=== PATIENT | female | born 1990 | race Caucasian/White ===

== ENCOUNTER 2022-05-10 14:24 | Outpatient (CLI) | payer BC, SELFPAY ==
[2022-05-10 14:46] LABS: Clue Cells No Clue Cells Seen (None Seen); Trichomonas No Trichomonas Seen (None Seen); Yeast No Yeast Seen (None Seen)
== END 2022-05-10 14:25 | disposition home or self-care (01) ==
LOC: LAB 14:25
PROVIDERS: Visit Provider Obstetrics & Gynecology
DX: Z34.01 Encounter for supervision of normal first pregnancy, first trimester (principal); Z3A.12 12 weeks gestation of pregnancy
CPT/HCPCS: 87210

== ENCOUNTER 2022-05-23 14:54 | Outpatient (CLI) | payer BC, SELFPAY ==
--- NOTE | 2022-05-23 15:00 | CRLHL7_ITS ---
For Patients: As a result of the Cures Act, medical imaging exams and procedure reports are released immediately into your electronic medical record. You may view this report before your referring provider. If you have questions, please contact your health care provider. Indication: Palpable abnormalities left inguinal region Technique: Ultrasound extremity left Comparison: None Findings: Multiple left inguinal lymph nodes measuring up to 1.9 centimeters. 5 millimeters cystic area in the left inguinal region. No other abnormalities. Impression: Multiple left inguinal lymph nodes measuring up to 1.9 centimeters. 5 millimeter cystic area in the left inguinal region of unknown clinical significance. Dictated by Rom Macias MD @ 05/23/2022 4:45:00 PM (Electronically Signed)
== END 2022-05-23 14:55 | disposition home or self-care (01) ==
LOC: US 14:55
PROVIDERS: Visit Provider Advanced Practice Midwife
DX: R59.9 Enlarged lymph nodes, unspecified (principal)
CPT/HCPCS: 76882

== ENCOUNTER 2022-07-05 12:46 | Outpatient (CLI) | payer BC, SELFPAY ==
--- NOTE | 2022-07-05 13:00 | CRLHL7_ITS ---
For Patients: As a result of the Century Cures Act, medical imaging exams and procedure reports are released immediately into your electronic medical record. You may view this report before your referring provider. If you have questions, please contact your health care provider. INDICATION: anatomy survey. TECHNIQUE: Obstetrical ultrasound. FINDINGS: position: Multiple positions. Cervix: Visualized. Technique: Transabdominal. Length of closed cervix: 4.3 cm. Placenta/cord: Anterior. Technique: Transabdominal. Placenta tip to internal OS: 2.8 cm. Umbilical Cord: 3-vessel cord. Placenta insertion: Central. Amniotic Fluid: 4.9 cm SDP (greater than/equal to: 2- less than 8 cm). SURVEY: Observed Structures Cerebellum: 2.1 cm, 21 w 2 d. Cisterna Magna: 4.8 mm. Nuchal Fold: 5.0 mm. Lateral Ventricle: 6.2 mm. CSP: Yes. Midline Falx: Yes. Choroid Plexus: Yes. Spine: Yes. Abdomen: Stomach: Yes. Abd Cord Insertion: Yes. Urinary Bladder: Yes. Kidneys: Yes. Diaphragm: Yes. Face: Nose/lips: Yes. Orbital view: Yes. Profile: Yes. Limbs: Upper Extremities: Yes. Lower Extremities: Yes. Hands: Yes. Feet: Yes. Vascular: Four-Chamber Heart: Yes. LVOT: Yes. RVOT: Yes. 3VV: Yes. 3VTV: Yes. BPD: 4.8 cm. 20 w 3 d, 36 percent. HC: 18.6 cm. 20 w 6 d, 50 percent. AC: 17.3 cm. 22 w 2 d, 88 percent. FL: 3.6 cm. 21 w 3 d, 66 percent. FL/AC: 20.8 percent. HC/AC Ratio: 1.07. Heart rate: 141 beats per minute. age by this US: 21, w 2 d. DEB by this US: 11/13/2022. EFW: 446 g. Weight: 1 lb, 0 oz. Percentile by DEB: 92 percent. COMMENTS: The placenta is anterior. The inferior edge of the placenta is 2.8 cm from the internal cervical os. No anatomic abnormalities are identified. Dictated by Solomon Kuhn MD @ 07/05/2022 10:19:07 PM (Electronically Signed)
== END 2022-07-05 12:47 | disposition home or self-care (01) ==
LOC: US 12:47
PROVIDERS: Visit Provider Advanced Practice Midwife
DX: Z34.92 Encounter for supervision of normal pregnancy, unspecified, second trimester (principal); Z3A.21 21 weeks gestation of pregnancy
CPT/HCPCS: 76805

== ENCOUNTER 2022-08-29 13:16 | Outpatient (CLI) | payer BC, SELFPAY ==
[2022-08-31 00:52] LABS: Rapid Plasma Reagin (RPR) Non Reactive (Non Reactive)
== END 2022-08-29 13:17 | disposition home or self-care (01) ==
PROVIDERS: Visit Provider Advanced Practice Midwife
DX: Z34.93 Encounter for supervision of normal pregnancy, unspecified, third trimester (principal)
CPT/HCPCS: 86592; 86850

== ENCOUNTER 2022-10-14 21:07 | Outpatient (CLI) | payer BC, SELFPAY ==
[2022-10-14 21:25] VITALS: BP 146/86; PULSE 75; PULSE 89; O2SAT 99
[2022-10-14 21:31] LABS: Hematocrit 33.3 % (33.0-51.0); Hemoglobin* 11.2 gm/dL (12.0-16.0); Mean Corpuscular HGB Conc 34 gm/dL (32-36); Mean Corpuscular Hemoglobin 33 pg (26-34); Mean Corpuscular Volume 97 fL (80-100); Platelet Count* 270 K/uL (140-440); Red Blood Count 3.43 m/uL (4.00-5.20); White Blood Count* 10.59 K/uL (4.50-11.00)
[2022-10-14 21:33] LABS: Slide Review Reflex No
[2022-10-14 21:37] VITALS: BP 135/70; PULSE 82; TEMP 36.8
[2022-10-14 21:52] VITALS: BP 122/75; PULSE 79
[2022-10-14 21:53] LABS: Alanine Aminotransferase* 16 U/L (4-35); Aspartate Amino Transferase* 21 U/L (12-35); Blood Urea Nitrogen* 4 mg/dL (5-24); Creatinine* 0.5 mg/dL (0.5-1.5); Estimated Glomerular Filt Rate 126 ml/min
[2022-10-14 21:53] LABS: Total Protein Urine 21 mg/dL
[2022-10-14 21:54] LABS: Creatinine Urine 48.5 mg/dL
[2022-10-14 22:07] VITALS: BP 122/72; PULSE 77
[2022-10-14 22:22] VITALS: BP 125/77; PULSE 75
[2022-10-14 22:37] VITALS: BP 119/73; PULSE 80
--- NOTE | 2022-10-14 23:28 | PC.OBNST ---
NST Note NST Note Start: 10/14/22 21:13 Freq: ONCE Status: Discharge Protocol: Document 10/14/22 23:26 JASMorgan (Rec: 10/14/22 23:28 ANG [id number]) NST Note 1 Para (# of births) 0 EDC 11/17/22 Gestational Age In Weeks & Days 35 Weeks & 1 Days Patient Presented with Complaint(s) of Other Other Complaints Pt called triage line for increased swelling and was sent to center for pre-e rule out. Reactive Yes Appropriate for Gestational Age Yes RN Mikal Gonzalez RN Date 10/14/22 Reactive Yes Appropriate for Gestational Age Yes RN Kiera Natarajan RN Date 10/14/22 OB NST charge Yes Complete NST Note via Write Note Yes The provider's electronic signature indicates the NST is reactive/appropriate for gestational age. *Note to provider: If an addendum is required, open the patient's chart and click on the note under the Nurse/Allied Health tab.
== END 2022-10-14 23:02 | disposition home or self-care (01) ==
LOC: OB OUT 21:08 → OB 21:10
PROVIDERS: Visit Provider Advanced Practice Midwife
DX: O47.03 False labor before 37 completed weeks of gestation, third trimester (principal); Z3A.35 35 weeks gestation of pregnancy
CPT/HCPCS: 36415; 59025; 82565; 82570; 84156; 84450; 84460; 84520; 85027; 99213

== ENCOUNTER 2022-10-15 15:56 | Outpatient (CLI) | payer BC, SELFPAY ==
[2022-10-16 14:38] LABS: Strep B DNA Probe NEGATIVE (Negative)
[2022-10-16 14:44] LABS: Strep B Pen/Amox Allergy No
== END 2022-10-15 15:57 | disposition home or self-care (01) ==
LOC: NFLDREF 15:56
PROVIDERS: Visit Provider Advanced Practice Midwife
DX: Z34.03 Encounter for supervision of normal first pregnancy, third trimester (principal); Z3A.35 35 weeks gestation of pregnancy
CPT/HCPCS: 87081; 87653

== ENCOUNTER 2022-10-16 16:14 | Outpatient (CLI) | payer BC, SELFPAY ==
[2022-10-16 18:19] LABS: Total Protein Urine 13 mg/dL
[2022-10-16 18:20] LABS: Creatinine Urine 61.4 mg/dL
[2022-10-16 18:58] LABS: Collection Time Urine 24 Hours
[2022-10-16 19:04] LABS: Total Protein 24 Hour Urine 325 mg/dL; Total Volume 24 Hour Urine 2500 ml; Urine Creatinine mg/24 Hour 0 mg/Day
== END 2022-10-16 16:15 | disposition home or self-care (01) ==
PROVIDERS: Visit Provider Advanced Practice Midwife
DX: O12.00 Gestational edema, unspecified trimester (principal); Z3A.35 35 weeks gestation of pregnancy
CPT/HCPCS: 82570; 84156

== ENCOUNTER 2022-10-24 09:11 | Outpatient (CLI) | payer BC, SELFPAY ==
--- NOTE | 2022-10-24 09:15 | CRLHL7_ITS ---
For Patients: As a result of the Century Cures Act, medical imaging exams and procedure reports are released immediately into your electronic medical record. You may view this report before your referring provider. If you have questions, please contact your health care provider. INDICATION: Third trimester scan, evaluate growth. SIZE LARGER THAN DATES COMPARISON: 07/05/2022 TECHNIQUE: Real time maher scale imaging of the fetus was performed. FINDINGS: Sonographic imaging demonstrates a single living intrauterine gestation. Fetus demonstrates a regular cardiac rate of 131 beats per minute. Fetus has a tamica breech position. The placenta lies without evidence of placenta previa. Amniotic fluid volume appears increased and there is a single deepest vertical pocket: 11.1 cm. CARL of 33.4 cm. The estimated weight is 4164gm which lies at the greater than 97th %. On the prior OB ultrasound exam dated 07/05/2022 the estimated weight was at the 92nd%. BPD, HC, AC greater than 97th percentile. FL 87th percentile. The HC/AC ratio measures 0.96 range (0.90-1.03). Normal gross body movements, tone and respiratory activity. IMPRESSION: Normal biophysical profile 06/18. Sonographic gestational age 40 weeks 0 days. Sonographic age is 24 days ahead of the clinical age. Estimated weight greater than 97th percentile. BPD, HC, AC greater than 97th percentile. Polyhydramnios. Four-quadrant CARL of 33.4 cm. Dictated by Rom Roca MD @ 10/24/2022 11:48:42 AM (Electronically Signed)
== END 2022-10-24 09:12 | disposition home or self-care (01) ==
LOC: US 09:12
PROVIDERS: Visit Provider Advanced Practice Midwife
DX: Z34.93 Encounter for supervision of normal pregnancy, unspecified, third trimester (principal); O40.3XX0 Polyhydramnios, third trimester, not applicable or unspecified; Z3A.36 36 weeks gestation of pregnancy
CPT/HCPCS: 76816; 76819

== ENCOUNTER 2022-11-01 11:58 | Inpatient (IN) | payer BC, SELFPAY ==
[2022-11-01] VITALS (23 sets, daily range): BP systolic 107–145; BP diastolic 50–110; PULSE 65–90; RESP 16–18; TEMP 37–37.4; O2SAT 96–100; BMI 32.4
[2022-11-01 12:14] LABS: Hemoglobin* 13.2 gm/dL (12.0-16.0)
[2022-11-01] MEDS: LACTATED RINGERS 1000 ML 1,000 ML 125 ML IV ×2 (12:15→13:30)
--- NOTE | 2022-11-01 13:37 | W.PM.LDBA ---
Subjective History of Present Illness Date Seen: 11/01/22 Narrative: Patient is being admitted to Labor and Delivery for delivery. She is a 32 year old at weeks gestation. Her full history and physical was dictated by Dr. Rosa on 10/30/22. Please see this for details. Patient was seen today in clinic for routine evaluation in the setting of polyhydramnios. Patient had one elevated blood pressure in clinic a couple of weeks ago and we had asked her to monitor her blood pressures at home. Patient states that last night she had readings as high as 150 systolic and she had also developed a headache. Due to elevated blood pressures more than 4 hours apart, diagnosis of gestational hypertension is met, she also had proteinuria since the beginning of that improved and today is again found elevated at 0.3, meeting criteria for preeclampsia w/o severe features. Labs repeated today and found normal w/o evidence of severe disease. Patient had been seen in clinic on 10/30/22 as a consult for delivery due to malpresentation. Recommendation was given today for delivery. OB - H&P: Exam Physical Exam: Vital signs: Pulse BP 90 121/74 11/01/22 13:27 11/01/22 13:27 Narrative: NST: 130bpm/positive accelerations/negative decelerations/ moderate variability/ irregular uterine contractions OB - Problem Based A/P Additional Plan (1) : Status: Acute Plan Will proceed with delivery today. Informed consent again reviewed with patient and . Discussed concerns for heavier bleeding in the setting of overdistended uterus and recommend dose of TXA after baby is delivered. Patient is in agreement with plan. Will continue to monitor vital signs closely after delivery, will only repeat labs if there is concerns for severe hypertension.
[2022-11-01] MEDS: CEFAZOLIN 2 GM INJ IVP (14:00)
[2022-11-01] MEDS: miSOPROStoL 800 MCG/4 TABLET PR (14:30)
[2022-11-01] MEDS: KETOROLAC 30 MG/ML inj IVP ×2 (14:30→20:45)
--- NOTE | 2022-11-01 14:41 | W.ANESCHARGE ---
Anesthesia Charges Start Date/Time Anesthesia Start Date: 11/01/22 Anesthesia Start Time: 13:50 Stop Date/Time Anesthesia Stop Date: 11/01/22 Anesthesia Stop Time: 15:06 Summary Emergency: Yes
--- NOTE | 2022-11-01 14:58 | PM.OBPRCCS ---
Procedure Pre-op/Post-op diagnoses: Pre-Op/Post-Op Diagnoses Operation Date: 11/01/22 12:50 <No data on this case meets the specified criteria> Procedure Done: Global Procedure Details: Procedures Operation Date: 11/01/22 12:50 Actual Procedure Side Surgeon p Section Not Applicable Krysten Dickerson MD Global Climate Change Researcher: Kianna De La Garza Estimated blood loss (mL): 589 Disposition: floor Anesthesia type: Spinal Complications: Uterine atony w/o hemorrhage Narrative: PREOPERATIVE DIAGNOSES: 1. Intrauterine at 37 5 /7 weeks' gestation. 2. Preeclampsia w/o severe features 3. Idiopathic polyhydramnios POSTOPERATIVE DIAGNOSES: 1. Intrauterine at 37 5/7 weeks' gestation, now delivered 2. Preeclampsia w/o severe features 3. Idiopathic polyhydramnios 4. Uterine atony w/o hemorrhage NAME OF PROCEDURE: Primary low transverse section. ANESTHESIA: Spinal. COMPLICATIONS: Uterine atony w/o hemorrhage. Quantitative BLOOD LOSS: 589 DRAINS: [place] to gravity. FINDINGS: Live-born female infant, breech presentation, Apgars 8 and 9 at 1 and 5 minutes respectively. weight 9 lb 8 oz. PROCEDURE: After obtaining informed consent, the patient was taken to the operating room where spinal anesthesia was obtained and found to be adequate. She was prepared and draped in the normal sterile fashion in the dorsal supine position with a leftward tilt. A Pfannenstiel skin incision was made with a scalpel about 2 cm above symphysis pubic bone, 8-10 cm in length. This incision was carried down to the underlying layer of fascia with the Bovie and scalpel. The fascia was incised in the midline and the incision extended laterally. The rectus muscles were then in the midline. The Romulo O retractor was then placed into the incision. The lower uterine segment was then incised in a transverse fashion with the scalpel. Upon entry into the uterus, clear amniotic fluid was noted, (about 2L of amniotic fluid). The uterine incision was extended cephalo caudally with blunt finger fractionation. sacrum/buttocks were brought to incision and with fundal pressure fetus was delivered slowly up to hips, legs were seen to be extended and a moist lap was placed in abdomen and with further fundal pressure and gentle traction baby was delivered up to scapulas, left arm eliveed spontaneously the right arm was extended and I flexed the arm to help deliver, Mauriceau maneuver was performed to complete delivery of head. The cord was doubly clamped and cut, after at least 30 seconds of delayed cord clamping and the was handed off the field to [facility] for evaluation. The placenta was delivered spontaneously with umbilical cord traction and fundal massage. This was sent to pathology. The uterus was cleared of all clots and debris. The uterine incision was reapproximated in a running locking fashion with a 0 Vicryl suture. A 2nd layer of the same suture was used to imbricate in horizontal fashion. The uterus continued to feel boggy and w/o adequate tone, I had already given 1g TXA after delivery of baby. 1 dose of Methergine (blood pressures intra op were low-normal) and 800mcg of Cytotec were placed rectally. Since there was no further bleeding identified at hysterotomy, nor vaginally proceeded with closure. The gutters were inspected and cleared of blood clot. All instruments and retractors were removed. The subfascial tissues were carefully inspected and hemostasis assured. The fascia was reapproximated in a running fashion with a looped 0 Vicryl suture. The subcutaneous tissues were inspected and hemostasis was assured. The subcutaneous fat layer was reapproximated with interrupted sutures of 3-0 Vicryl. The skin was closed in a subcuticular fashion with 4-0 Monocryl. LiquiBand and dressing were applied. The patient tolerated the procedure well. Sponge, lap, needle, and instrument counts were reported as correct x2. The patient was taken to the recovery room, awake, and in stable condition. She did receive 2 grams of IV Ancef preoperatively.
--- NOTE | 2022-11-01 15:12 | W.ANESCHARGE ---
Anesthesia Charges Start Date/Time Anesthesia Start Date: 11/01/22 Anesthesia Start Time: 13:50 Stop Date/Time Anesthesia Stop Date: 11/01/22 Anesthesia Stop Time: 15:06 Summary Emergency: Yes
--- NOTE | 2022-11-01 15:13 | W.PM.NB ---
Nerve Block Nerve Block Time Seen by Provider: 14:59 Date Seen: 11/01/22 Type of block requested by surgeon for post-operative analgesia: TAP Side: bilateral Time out performed: Yes Verification of patient name: Yes Verification of date of : Yes Site marking: site marked Name of person performing procedure: Nicolás Continuous monitoring Was continuous monitoring of O2 sat, B/P, cardiac catheterization technician, recorded every 15 minutes?: Yes Procedure Checklist: sterile prep, needles and gloves Ultrasound guided. Images saved: Yes Medications given in 5ml increments after negative aspiration: Marcaine %: 0.25 mL: 30 Needle gauge: 20 and Exparel mL: 10 Patient tolerated procedure well: Yes Additional comments: Needle noted adjacent to nerve Block Charges Block Charge (with Pro Fee): TAP Bilateral Use of Ultrasound Machine for Block: Yes- US Guidance/pain block
[2022-11-01] MEDS: SODIUM CHLORIDE 0.9 % (FLUSH) 10 ML SYRINGE IVF (20:45)
[2022-11-02] VITALS (19 sets, daily range): BP systolic 99–133; BP diastolic 62–80; PULSE 64–99; RESP 16–18; TEMP 36.4–36.8; O2SAT 96–99
[2022-11-02 00:16] LABS: SARS PCR* Negative SARS-CoV-2 (Negative)
[2022-11-02] MEDS: ACETAMINOPHEN 500 MG TABLET 1000 MG PO ×4 (01:01→20:16)
[2022-11-02] MEDS: KETOROLAC 30 MG/ML inj IVP ×4 (03:09→23:50)
[2022-11-02 06:59] LABS: Hemoglobin* 10.8 gm/dL (12.0-16.0)
--- NOTE | 2022-11-02 08:13 | P.OBPN_ITS ---
OB - PN: A/P Assessment and Plan (1) : Status: Acute Plan Plan: routine postop care Comments: Assessment/Plan G 1 P 1 status post uncomplicated primary . 1. ?Continue route PP cares 2. ?. ?May see if desired 3. ?Anticipate discharge home tomorrow or the following day per pt preference 4. ?Acute anemia. ? 5. Preeclampsia w/o severe features. Continue to monitor BPs, WNL at this time OB - PN: Subj Subjective Time Seen by Provider: 08:13 Date Seen: 11/02/22 Interval history: Cassandra is a 32 y.o. who was admitted to [facility] for preeclampsia w/o severe features and a for breech presentation. ?She had an uncomplicated c- section. ? Patient comments: no complaints and pain well controlled [place] infant status: bottle and doing well feeding status: exclusively bottle feeding Narrative: The patient feels well. ?The pain is well controlled with current medications. ?She has no new complaints. ?She is bottle feeding and reports things are going well.? the patient has done well.? Vitals have been stable.? She has remained afebrile.? Has a good appetite, is tolerating a general diet. ?She is voiding without difficulty.? She is passing gas and has not had a bowel movement.? She is ambulating and denies any dizziness.? Has Small amount of rubra lochia. OB - PN: Obj Exam Physical Exam: Vital signs: Temp Pulse Resp BP Pulse Ox O2 Del Method 98.3 F 64 18 99/66 97 11/02/22 03:38 11/02/22 03:38 11/02/22 03:38 11/02/22 03:38 11/02/22 03:38 11/02/22 03:38 Narrative: VSS. Afebrile GENERAL APPEARANCE: ?normal affect, alert, no distress MOOD: ?appropriate HEENT: normocephalic, neck supple, full ROM CHEST: ?Symmetrical chest wall movement. ?Normal respiratory effort. ?Clear to auscultation HEART: ?regular rate and rhythm ABDOMEN: ?soft, non-tender. Uterine fundus is firm, at Umbilicus, Midline and is appropriate for the stage of recovery. ?Bowel sounds present. EXTREMITIES: ?normal and no edema SKIN: warm, dry. Dressing on, clean/dry/intact. No signs of infection noted. Urinary Catheter Management: 2-way Urethral: Cath placed during this visit: yes Urethral indwelling: No Reason for continuing: surgical procedure Insertion date: 11/01/22 Insertion time: 13:59 OB - PN: Obj Data Labs Labs: Laboratory Results - last 24 hr 11/01/22 11/01/22 11/01/22 12:00 12:00 12:00 Hgb 13.2 SARS-CoV-2 (PCR) Negative SARS-CoV-2 Blood Type A Negative Antibody Screen POSITIVE 11/02/22 06:39 Hgb 10.8 L SARS-CoV-2 (PCR) Blood Type Antibody Screen
[2022-11-02] MEDS: DOCUSATE SODIUM 100 MG CAPSULE PO (11:19)
[2022-11-02] MEDS: OXYCODONE 5 MG TABLET PO ×2 (15:41→20:16)
[2022-11-02] MEDS: SODIUM CHLORIDE 0.9 % (FLUSH) 10 ML SYRINGE IVF (23:51)
[2022-11-03] MEDS: OXYCODONE 5 MG TABLET PO ×2 (00:16→09:26)
[2022-11-03] MEDS: ACETAMINOPHEN 500 MG TABLET 1000 MG PO ×2 (02:24→09:25)
[2022-11-03 04:55] VITALS: BP 117/73; PULSE 68; RESP 16; TEMP 36.6; O2SAT 99
[2022-11-03] MEDS: IBUPROFEN 600 MG TABLET PO (05:12)
[2022-11-03 08:15] VITALS: BP 116/78; PULSE 72; RESP 18; TEMP 36.7; O2SAT 100
--- NOTE | 2022-11-03 08:25 | P.DS_ITS ---
DS: Providers Provider Date Seen: 11/03/22 Date of admission: 11/01/22 11:58 Primary care physician: Not a Local Provider Admitting Clinician: Krysten Dickerson MD Attending Physician on discharge: Chelsea Melgar CNM Date of Discharge: 11/03/22 DS: Diagnosis Discharge Diagnosis (1) care and examination immediately after delivery: Status: Acute (2) Mild preeclampsia: Status: Acute (3) ADHD (attention deficit hyperactivity disorder): Status: Acute (4) Status post primary low transverse section: Status: Acute Problem details: For mild preeclampsia, breech presentation, polyhydramnios at 37 weeks 5days gestation. Girl. 9#8oz. Exam Const: Vital Signs, click to edit/add: Vital Signs - 24 hr 11/02/22 08:27 11/02/22 09:27 11/02/22 11:27 Temperature Pulse Rate [Pulse Oximeter] Respiratory Rate 16 16 16 Blood Pressure [Ri ght Arm] Pulse Oximetry Oxygen Delivery Me thod 11/02/22 12:27 11/02/22 13:27 11/02/22 12:10 Temperature 97.6 F Pulse Rate [Pulse Oximeter] 79 Respiratory Rate 18 16 18 Blood Pressure [Ri ght Arm] 106/72 Pulse Oximetry 98 Oxygen Delivery Me thod Room Air 11/02/22 16:10 11/02/22 20:10 11/02/22 23:49 Temperature 98.2 F 98.1 F 97.7 F Pulse Rate [Pulse Oximeter] 79 80 99 Respiratory Rate 18 16 16 Blood Pressure [Ri ght Arm] 125/80 118/62 133/80 Pulse Oximetry 99 96 99 Oxygen Delivery Me thod Room Air Room Air Room Air 11/03/22 04:55 Temperature 98 F Pulse Rate [Pulse Oximeter] 68 Respiratory Rate 16 Blood Pressure [Ri ght Arm] 117/73 Pulse Oximetry 99 Oxygen Delivery Me thod Room Air Documenting provider has reviewed patient's vital signs: yes Common normals: no apparent distress, oriented x3, healthy appearing and alert HENMT: Common normals: normocephalic Head and scalp: normocephalic Eye: Common normals: PERRL Pupil: PERRL Neck & C-Spine: Common normals: full ROM and supple Chest: Common normals: inspection of chest normal Resp: Common normals: normal respiratory effort and clear to auscultation bilaterally Auscultation: clear to auscultation bilaterally Cardio: Common normals: regular rate and regular rhythm Rate: regular rate Rhythm: regular rhythm GI: Common normals: soft to palpation Inspection: incision (abdominal lower transverse: glue intact, well approximated; clean and dry) Palpation: soft : Uterus: U/1 Lochia: small Back & Pelvis: Common normals: thoracic and lumbar spine normal to inspection Extremity: Common normals: normal to inspection and full ROM Neuro: Common normals: oriented x3 Sensorium/orientation: alert Speech: speech normal Psych: Common normals: mental status grossly normal, thought process normal, speech normal and activity/motor behavior normal Speech: normal speech Thought process: normal thought process Skin: Common normals: no rashes or lesions noted General skin exam: no rashes or lesions noted DS: Data Data Completed and Pending Labs on day of discharge: Labs from last 24 hours 11/01/22 11/01/22 18:50 12:00 Antibody Identification Anti-D Screen Negative OB - DS: Summary Hospital Course Hospital Course: The patient is a 32 year old G 1 P 1 at 37 5/7 weeks gestation that was admitted to the Center on 11/01/22 for Pre-eclampsia without severe features for section due to breech presentation. She had an uncomplicated delivery. She delivered a viable female . the patient has done well. The pain is well controlled with current medications.? She has no new complaints.? Urinary output is adequate and she is voiding without difficulty.? Has a good appetite, is tolerating a general diet, is passing flatus, and has had a bowel movement.? Has small amount of rubra lochia.? She is ambulating well. She is formula feeding. Peripartum Data Procedures: Procedures Operation Date: 11/01/22 12:50 Actual Procedure Side Surgeon p Section Not Applicable Krysten Dickerson MD complications: none [place] Gender: Female Discharge Plan: Home Status at Discharge Functional status at discharge: independent ambulation Overall status at discharge: patient is progressing back to baseline Time Spent with Patient Time attestation: Total time spent providing and/or coordinating discharge services: Time spent: Less than 30 minutes Discharge Plan Discharge Disposition: Home, Self-Care Date of Admission: 11/01/22 11:58 Attending Provider on Discharge: Chelsea Melgar Primary Care Provider: Provider,Not a Local Condition: Stable Anticipated Discharge Date/Time: 11/03/22 12:00 Discharge Medications: New acetaminophen 500 mg Tablet 1,000 mg PO Q6H PRN (Reason: pain/fever) Qty: 0 0RF docusate sodium 100 mg Capsule 100 mg PO DAILY Qty: 90 0RF ibuprofen 600 mg Tablet 600 mg PO Q6H PRN (Reason: Pain) Qty: 60 0RF oxycodone 5 mg Tablet 5 - 10 mg PO Q4H PRN (Reason: Pain) Qty: 20 0RF Continued ondansetron HCl 4 mg tablet 4 mg PO Q6H PRN (Reason: nausea and vomiting) Qty: 20 0RF dextroamphetamine-amphetamine [Adderall] 5 mg tablet 5 mg PO BID Rx Instructions: administer doses at least 4-6 hours apart Multi-DHA(with vit K) 27 mg iron-800 mcg-260 mg capsule 1 cap PO DAILY Discharge Orders: Discharge Order (Routine); Ordered 11/03/22 Ordered By: Chelsea Melgar Patient Education: OB /Bottle Feeding Additional Instructions: Discharge instructions were reviewed with the patient including signs and symptoms of infection and home going medications Lifting Restrictions: 20 pounds for 6 weeks No not submerge incision under water X 2 weeks? Nothing vaginally for 6 weeks: no tampons or intercourse Do not drive while taking narcotic pain medication(s) Off Work or School for 8 weeks Follow Up [facility] for a BP check at 2 weeks Call with BP greater than or equal to 160/110 2-week visit: incision check, discuss feeding concerns, review control options and screen for anxiety/depression. 6-week visit for an annual exam. consultation services are available to all mothers and babies for the first year after delivery.? To make an appointment, please call [phone]. Activity Level: Activity as Tolerated Discharge Diet: Regular Follow Up Appointments: [facility] [Provider Group] (2 weeks and 6 weeks ) Forms: [employer] Info Instructions
[2022-11-03 08:31] VITALS: BP 116/78; RESP 18; TEMP 36.7; O2SAT 100
[2022-11-03] MEDS: DOCUSATE SODIUM 100 MG CAPSULE PO (09:25)
== END 2022-11-03 11:50 | disposition home or self-care (01) | DRG 540 ==
PROVIDERS: Admitting Provider Obstetrics & Gynecology; Visit Provider Obstetrics & Gynecology
PROC: 10D00Z1 Extraction of Products of Conception, Low, Open Approach (ICD-10-PCS; CPT 59514; principal; 2022-11-01 12:35)
DX: O14.04 Mild to moderate pre-eclampsia, complicating childbirth (principal); Z3A.37 37 weeks gestation of pregnancy; O32.1XX0 Maternal care for breech presentation, not applicable or unspecified; O40.3XX0 Polyhydramnios, third trimester, not applicable or unspecified; F90.9 Attention-deficit hyperactivity disorder, unspecified type; O36.63X0 Maternal care for excessive fetal growth, third trimester, not applicable or unspecified; O62.2 Other uterine inertia; O90.81 Anemia of the puerperium; Z37.0 Single live birth; D62 Acute posthemorrhagic anemia
CPT/HCPCS: 01961; 36415; 59025; 64488; 76815; 76816; 76819; 76942; 82565; 82570; 84112; 84156; 84450; 84460; 85018; 85025; 85461; 86850; 86870; 86880; 86900; 86901; 87635; 88307; 99140; 99213; A9270; C9290; J0690; J1885; J2274; J2370; J2405; J2791; J3490; J7120

== ENCOUNTER 2025-01-08 07:17 | Outpatient (CLI) | payer BC, SELFPAY ==
--- NOTE | 2025-01-08 07:15 | CRLHL7_ITS ---
For Patients: As a result of the Cures Act, medical imaging exams and procedure reports are released immediately into your electronic medical record. You may view this report before your referring provider. If you have questions, please contact your health care provider. OBSTETRICAL ULTRASOUND < 14 WEEKS, 01/08/2025 INDICATION: Dating and viability. TECHNIQUE: Real time maher scale imaging of the fetus was performed. Transvaginal. LMP: 10/25/2024. DEB by LMP: 08/01/2025. Previous US: No. CRL: 0.7 cm. 6 w 4 d. DEB: 08/30/2025. Gestational sac: 1.7 cm. Appears within normal limits. Yolk sac: 3.4 mm. Appears within normal limits. Right ovary: Within normal limits. 2.8 x 2.4 x 2.5 cm. CL. Left ovary: Within normal limits. 2.6 x 1.0 x 2.4 cm. IMPRESSION: 1. Single living intrauterine with sonographic gestational age 6 weeks 4 days and sonographic due date 08/30/2025. heart rate lower limits of normal at 113 beats per minute. Follow-up in 2 weeks recommended. 2. There are two sub-chorionic hemorrhages, one located superiorly measuring 1.6 x 0.6 x 0.8 cm and one located inferior to the gestational sac measuring 9 x 6 x 15 mm. Rom Roca M.D. Diagnostic Radiologist [email or web address] RICKY/[email or web address] DW/Dictated by: Rom Roca MD @ 01/09/2025 6:52:00 AM (Electronically Signed)
== END 2025-01-08 07:18 | disposition home or self-care (01) ==
LOC: US 07:18
PROVIDERS: Visit Provider Advanced Practice Midwife
DX: Z34.91 Encounter for supervision of normal pregnancy, unspecified, first trimester (principal); O20.9 Hemorrhage in early pregnancy, unspecified; Z3A.01 Less than 8 weeks gestation of pregnancy
CPT/HCPCS: 76817; 82565; 82570; 83021; 84156; 84450; 84460; 84520; 84550; 86592; 86703; 86704; 86706; 86762; 86787; 86803; 86850; 86900; 86901; 87086; 87340

== ENCOUNTER 2025-01-22 07:10 | Outpatient (CLI) | payer BC, SELFPAY ==
--- NOTE | 2025-01-22 07:15 | CRLHL7_ITS ---
For Patients: As a result of the Cures Act, medical imaging exams and procedure reports are released immediately into your electronic medical record. You may view this report before your referring provider. If you have questions, please contact your health care provider. OB ULTRASOUND FIRST TRIMESTER, 01/22/2025 INDICATION: Follow-up viability. TECHNIQUE: Real time maher scale imaging of the fetus was performed. Transvaginal. LMP: 10/25/2024. DEB by LMP: 08/01/2025. DEB by US: 08/30/2025. GA: 8 w, 4 d. Previous US: Yes 01/08/2025. DEB by US: 08/30/2025. GA: 8 w, 4 d. CRL: 2.0 cm. 8 w 4 d. DEB: 08/30/2025. FHR: 169 BPM. Gestational sac: 3.7 cm. Appears within normal limits. Yolk sac: 4.7 mm. Appears within normal limits. Right ovary: 3.1 x 1.8 x 2.6 cm. CL. Left ovary: 3.0x 2.1 x 1.8 cm. IMPRESSION: 1. Single living intrauterine with sonographic gestational age 8 weeks 4 days and sonographic due date 08/30/2025. 2. Subchorionic hemorrhage on the right measures 1.7 x 1.2 x 0.8 cm. 3. Incidental corpus luteal cyst right ovary. Rom Roca M.D. Diagnostic Radiologist [email or web address] RICKY/ya JR/Dictated by: Rom Roca MD @ 01/22/2025 10:06:00 AM (Electronically Signed)
== END 2025-01-22 07:11 | disposition home or self-care (01) ==
LOC: US 07:10
PROVIDERS: Visit Provider Advanced Practice Midwife
DX: Z34.91 Encounter for supervision of normal pregnancy, unspecified, first trimester (principal); O20.9 Hemorrhage in early pregnancy, unspecified; O34.81 Maternal care for other abnormalities of pelvic organs, first trimester; N83.11 Corpus luteum cyst of right ovary; Z3A.08 8 weeks gestation of pregnancy
CPT/HCPCS: 76817

== ENCOUNTER 2025-03-19 07:00 | Outpatient (CLI) | payer BC, SELFPAY | END 2025-03-19 07:01 | disposition home or self-care (01) | LOC: NFLDREF 03-20 11:43 | PROVIDERS: Visit Provider Advanced Practice Midwife | DX: Z34.92 Encounter for supervision of normal pregnancy, unspecified, second trimester (principal); Z3A.16 16 weeks gestation of pregnancy | CPT/HCPCS: 82570; 84156 ==

== ENCOUNTER 2025-03-31 12:12 | Outpatient (CLI) | payer BC, SELFPAY | END 2025-03-31 12:13 | disposition home or self-care (01) | LOC: US 12:12 | PROVIDERS: Visit Provider Advanced Practice Midwife | DX: O09.522 Supervision of elderly multigravida, second trimester (principal); Z3A.18 18 weeks gestation of pregnancy | CPT/HCPCS: 76811 ==

== ENCOUNTER 2025-06-07 13:56 | Outpatient (CLI) | payer BC, SELFPAY ==
--- NOTE | 2025-06-07 14:00 | CRLHL7_ITS ---
For Patients: As a result of the Cures Act, medical imaging exams and procedure reports are released immediately into your electronic medical record. You may view this report before your referring provider. If you have questions, please contact your health care provider. OB ULTRASOUND DEB by LMP/US: 08/30/2025. GA: 28 w, 0 d. Single. Comparison: Ultrasound 03/12/2025. INDICATION: Low-lying placenta. TECHNIQUE: Real time maher scale imaging of the fetus was performed. Transabdominal and Transvaginal. CERVIX: Visualized, transvaginal. POSITIONING: Vertex. AMNIOTIC FLUID: 6.0 cm. SDP (N: greater than 2 x 1 cm) PLACENTA: Technique: Transabdominal. PLACENTA POSITION: Posterior. COMMENT: The placenta is located posterior and placental edge is seen 0.9 cm from the internal os. The cervix is closed measuring 3.7 cm. IMPRESSION: Low-lying placenta with placental edge measuring 0.9 cm from the cervix. Dominique Zelaya M.D. Diagnostic/Breast Radiologist [email or web address] LYUBOV/[email or web address] / DW/Dictated by: Dominique Zelaya MD @ 06/12/2025 7:14:00 AM (Electronically Signed)
== END 2025-06-07 13:57 | disposition home or self-care (01) ==
LOC: US 13:56
PROVIDERS: Visit Provider Advanced Practice Midwife
DX: O44.43 Low lying placenta NOS or without hemorrhage, third trimester (principal); Z3A.28 28 weeks gestation of pregnancy; Z67.91 Unspecified blood type, Rh negative; Z34.93 Encounter for supervision of normal pregnancy, unspecified, third trimester
CPT/HCPCS: 76816; 86592; 86850; J2791

== ENCOUNTER 2025-06-07 15:04 | Outpatient (CLI) | payer BC, SELFPAY | END 2025-06-07 15:05 | disposition home or self-care (01) | LOC: NFLDREF 15:05 | PROVIDERS: Visit Provider Advanced Practice Midwife | DX: Z67.91 Unspecified blood type, Rh negative (principal); Z34.93 Encounter for supervision of normal pregnancy, unspecified, third trimester | CPT/HCPCS: 86592; 86850; J2791 ==

== ENCOUNTER 2025-08-02 13:29 | Outpatient (CLI) | payer BC, SELFPAY ==
[2025-08-03 16:58] LABS: Strep B DNA Probe Negative (Negative)
[2025-08-04 01:08] LABS: Strep B Susceptibility Needed? No
== END 2025-08-02 13:30 | disposition home or self-care (01) ==
LOC: NFLDREF 13:30
PROVIDERS: Visit Provider Advanced Practice Midwife
DX: O44.43 Low lying placenta NOS or without hemorrhage, third trimester (principal); O36.63X0 Maternal care for excessive fetal growth, third trimester, not applicable or unspecified; Z3A.36 36 weeks gestation of pregnancy
CPT/HCPCS: 76816; 76817; 87081; 87653

== ENCOUNTER 2025-08-10 15:06 | Outpatient (CLI) | payer BC, SELFPAY ==
[2025-08-10 15:15] VITALS: PULSE 86; O2SAT 100
[2025-08-10 15:18] VITALS: BP 126/78; PULSE 92; RESP 24; TEMP 36.7
--- NOTE | 2025-08-10 15:19 | CRLHL7_ITS ---
For Patients: As a result of the Century Cures Act, medical imaging exams and procedure reports are released immediately into your electronic medical record. You may view this report before your referring provider. If you have questions, please contact your health care provider. OB ULTRASOUND DEB by US: 08/30/2025. GA: 37 w, 1 d. Single. INDICATION: Fluid assessment and status. TECHNIQUE: Real time grayscale imaging of the fetus was performed. Transabdominal. CERVIX: Not visualized. POSITIONING: Vertex. AMNIOTIC FLUID: 25.4 cm CARL. 8.5 cm. SDP (N: greater than 2 x 1 cm) BIOPHYSICAL PROFILE: 2: Gross body movements 2: tone 0: Respiratory activity 2: Amniotic fluid SDP (N: greater than 2 x 1 cm) 6/8: Total score PLACENTA: Technique: Transabdominal. PLACENTA POSITION: Posterior. DOPPLER: heart rate: 122 bpm. IMPRESSION: 1. Biophysical profile score 6/8 with absent respiratory activity. 2. Amniotic fluid single deepest pocket 8.5 cm with CARL 25.4 cm. Rom Roca M.D. Diagnostic Radiologist [email or web address] RICKY/trevon lester/Dictated by: Rom Roca MD @ 08/11/2025 8:28:00 AM (Electronically Signed)
[2025-08-10 15:20] VITALS: PULSE 93; O2SAT 100
[2025-08-10 15:25] VITALS: PULSE 100; O2SAT 99
[2025-08-10 17:45] LABS: Amnisure Rom* Negative
--- NOTE | 2025-08-10 18:16 | PC.OBNST ---
NST Note NST Note Start: 08/10/25 15:16 Freq: ONCE Status: Complete Protocol: Document 08/10/25 18:13 VMM (Rec: 08/10/25 18:16 VMM No Response) NST Note 2 Para (# of births) 1 EDC 08/30/25 Gestational Age In 37 Weeks & 1 Days Weeks & Days High Risk Factors Advanced Maternal Age Patient Presented Leaking fluid with Complaint(s) of Other Complaints Patient was seen in clinic today, and mentioned feeling leaking of fluid. Patient was transferred to center for observation and biophysical profile. Tests completed for rupture of membranes and rule out labor. Reactive Yes Appropriate for Yes Gestational Age NISHA Michael RN Date 08/10/25 Reactive Yes Appropriate for Yes Gestational Age NISHA Natarajan RN Date 08/10/25 OB NST charge Yes Complete NST Note Yes via Write Note The provider's electronic signature indicates the NST is reactive/appropriate for gestational age. *Note to provider: If an addendum is required, open the patient's chart and click on the note under the Nurse/Allied Health tab.
== END 2025-08-10 18:30 | disposition home or self-care (01) ==
LOC: OB OUT 15:07 → OB 15:07
PROVIDERS: Visit Provider Obstetrics & Gynecology
DX: O09.523 Supervision of elderly multigravida, third trimester (principal); O47.1 False labor at or after 37 completed weeks of gestation; Z3A.37 37 weeks gestation of pregnancy
CPT/HCPCS: 59025; 76819; 84112; G0463

== ENCOUNTER 2025-08-11 13:50 | Outpatient (CLI) | payer BC, SELFPAY ==
[2025-08-11 14:07] VITALS: BP 125/69; PULSE 94; RESP 16
[2025-08-11 14:33] LABS: Amnisure Rom* Negative
--- NOTE | 2025-08-11 15:05 | P.OBLDTN_ITS ---
OB - Triage/Final Diagnosis Visit Information Time Seen by Provider: 15:05 Narrative: The patient is a 34 year old 2 para 1 at 37 weeks gestation by US, who presents with contractions and possible leaking of fluids. is complicated by history of (breech, hypertensive disorder of ), polyhydramnios, AMA, tobacco use disorder, mood disorder, history of macrosomia, thickened nuchal fold (normal NIPT). Patient was observed on the Center yesterday in the setting of contractions and reported leaking of fluid. Her cervix was found to be fingertip, with negative AmniSure and wet prep positive for yeast. Patient has not started her use treatment. This afternoon, she called the nurse triage line in clinic reporting regular and painful contractions. She noted these were occurring about every 10 minutes, but when she was on the phone she had to that she had debris through. On arrival, she notes her contractions have decreased in frequency. She is now having these less than every 10 minutes. Rates them as a 5/10 in severity and s ometimes less. She notes that she continues to have clear leaking of fluids intermittently, that is described as thin and without odor. She notes this occasionally throughout the day or with movement. She notes she also has stress urinary incontinence, but feels this is different. Denies any vaginal bleeding. Endorses active movement. VS WNL. General: Alert and oriented, no acute distress Psych: Appropriate mood and affect Abdomen: Gravid. Ultrasound yesterday confirmed mild polyhydramnios, with MVP of 8.5 cm and CARL of 25.4 cm. heart rate: Reactive NST. Baseline of 140 beats per minute, moderate variability, several qualifying 15 x 15 accelerations seen, no decelerations. [place]: Contractions every 3-11 minutes. Patient resting comfortably during contraction during our discussion. Pelvic: External genital exam within normal limits. Perineum dry. Speculum inserted, vaginal mucosa is pink and well rugated. Cervix appears visually closed. No pooling, no leaking with valsalva. There is moderate volume of cream-colored thickened discharge, clinically consistent with known yeast infection. PH of the vagina is 4.0. Swab obtained ferning, negative. Repeat wet prep was not completed as she is to be positive yesterday and has not started treatment. Cervix: 0.5/long/-3 on RN exam, unchanged at recheck Explained reassuring evaluation. Clinically, though she is having irregular contractions that are painful these are not changing her cervix. She remained fingertip/long/-3 across period of monitoring in triage today, unchanged from her previous exam yesterday night. With regard to leakage, I have no evidence for rupture of membranes at this time - perineum is dry, no pooling/leaking with Valsalva, ferning negative and AmniSure negative. Discharge is thickened and cream-colored, highly consistent with yeast. Ultrasound including fluid assessment yesterday was notable for mild polyhydramnios. Explained her symptoms are likely secondary to uterine irritability with her known yeast infection. Recommend she proceed with treatment of vulvovaginal yeast infection as prescribed yesterday. Patient was discharged to home after reassuring evaluation. Return precautions reinforced. Specifically, if she is having regular/painful uterine contractions, vaginal bleeding, leaking fluids or decreased movement I would recommend return to care. She expressed understanding and is agreeable to plan. Evaluation Laboratory results: Laboratory Tests 08/11/25 Range/Units 14:14 Membrane Rupture Negative Vital signs: Vital Signs - 24 hr 08/11/25 14:07 08/11/25 14:07 Pulse Rate 94 Respiratory Rate 16 Blood Pressure 125/69
--- NOTE | 2025-08-11 17:03 | PC.OBNST ---
NST Note NST Note Start: 08/11/25 13:58 Freq: ONCE Status: Active Protocol: Document 08/11/25 16:58 DONATO (Rec: 08/11/25 17:00 Bradly [email or web address]) NST Note 2 Para (# of births) 1 EDC 08/30/25 Gestational Age In 37 Weeks & 2 Days Weeks & Days Patient Presented Contractions/cramping,Leaking fluid with Complaint(s) of Other Complaints Amnisure neg. Reactive Yes RN Ashish Fan RN Date 08/11/25 Reactive Yes Appropriate for Yes Gestational Age NISHA Alvarado RN Date 08/11/25 OB NST charge Yes Complete NST Note Yes via Write Note The provider's electronic signature indicates the NST is reactive/appropriate for gestational age. *Note to provider: If an addendum is required, open the patient's chart and click on the note under the Nurse/Allied Health tab.
[2025-08-13 18:08] LABS: Fern Test* Ferning not present; Vaginal pH* 4.0 (3.8-4.5)
== END 2025-08-11 15:45 | disposition home or self-care (01) ==
LOC: OB OUT 13:50 → OB 13:51
PROVIDERS: Visit Provider Obstetrics & Gynecology
DX: O47.1 False labor at or after 37 completed weeks of gestation (principal); Z3A.37 37 weeks gestation of pregnancy
CPT/HCPCS: 59025; 83986; 84112; G0463; Q0114

== ENCOUNTER 2025-08-16 23:25 | Outpatient (CLI) | payer BC, SELFPAY ==
[2025-08-16 23:37] VITALS: PULSE 101; PULSE 102; O2SAT 80; O2SAT 99
[2025-08-16 23:42] VITALS: BP 131/76; PULSE 98; PULSE 99; O2SAT 99
--- NOTE | 2025-08-24 08:02 | PC.OBNST ---
NST Note NST Note Start: 08/16/25 23:31 Freq: ONCE Status: Discharge Protocol: Document 08/17/25 00:23 [facility] (Rec: 08/17/25 00: [facility] No Response) NST Note 2 Para (# of births) 1 EDC 08/30/25 Gestational Age In 38 Weeks & 1 Days Weeks & Days Patient Presented Contractions/cramping,Pain with Complaint(s) of If Pain, describe Right rib pain location Reactive Yes Appropriate for Yes Gestational Age NISHA Patterson, RN Date 08/17/25 Reactive Yes Appropriate for Yes Gestational Age NISHA Brown, RN Date 08/17/25 OB NST charge Yes Complete NST Note Yes via Write Note The provider's electronic signature indicates the NST is reactive/appropriate for gestational age. *Note to provider: If an addendum is required, open the patient's chart and click on the note under the Nurse/Allied Health tab.
== END 2025-08-17 00:15 | disposition home or self-care (01) ==
LOC: OB OUT 23:25 → OB 23:27
PROVIDERS: Visit Provider Obstetrics & Gynecology
DX: O47.1 False labor at or after 37 completed weeks of gestation (principal); Z3A.38 38 weeks gestation of pregnancy
CPT/HCPCS: 59025; G0463

== ENCOUNTER 2025-08-19 14:46 | Inpatient (IN) | payer BC, SELFPAY ==
[2025-08-19] VITALS (17 sets, daily range): BP systolic 102–118; BP diastolic 56–74; PULSE 63–77; RESP 16–22; TEMP 36.4–36.6; O2SAT 98–100; BMI 30.7
[2025-08-19] MEDS: LACTATED RINGERS 1000 ML 1,000 ML 1200 ML IV (15:12)
--- NOTE | 2025-08-19 15:29 | P.LDBA_ITS ---
Subjective History of Present Illness Date Seen: 08/19/25 Narrative: Patient is being admitted to Labor and Delivery for repeat delivery. She is a 34 year old at 38 3/7 weeks gestation. Her full history and physical was dictated by Dr. MALONE on 08/10/25. Please see this for details. Patient seen in clinic today experiencing painful frequent contractions, cervical check shows change in cervical dilation in labor recommend to proceed with repeat today. Specific Issues/Plans FOB: Nathaniel, no longer together but he is living in the home in a separate bedroom; is involved with daughter, Kimi H&P by FAISAL on 08/10/25 # Posterior Low lying placenta-Resolved The placenta appears low lying on transabdominal assessment at 1.26 cm from the internal cervical os, declined transvaginal US Follow up transvaginal ultrasound at 28-32 weeks: 2.7cm away from cervix # Hx of c/s, for breech presentation with poly and pre-eclampsia Repeat with bilateral salpingectomy at 39 weeks Growth US at 36 weeks: suspected macrosomia, as below #Suspected macrosomia and mild polyhydramnios 08/10/25: CARL: 25.4, SDP: 8.5 08/02/25: EFW 3733, >97%, AC >97% # Advanced maternal age Recommend Genetic Screening Test: Roxton desired 20-week Level II detailed ultrasound with MFM: completed # Smoker, nicotine abuse Reported 0-3 cigs per day at NOB, stopped last # Hx of ADHD, anxiety, and depression Stopped Adderall at + UPT Referral to Counseling placed at [facility] to [facility] Referral for Psychiatry placed 02/15 Having some stress at home, manageable now that Nathaniel moved out; As of 04/27, he was again living in the home # Rh negative: Recommend RhoGAM at 28 weeks: given 06/07 Recommend Rhogam pp Baby is Rh + on [place]xton # Hx of pre-eclampsia Recommended baby ASA Baseline labs drawn at [facility]: p/c ratio 0.45; 24 hour urine 0.11 # Hx of macrosomic infant, 9lb 5oz at 37 weeks # Lump in groin, unchanged from previous Recommend imaging # Thickened nuchal fold on Level II, may be false measurement due to suboptimal view Normal Roxton screen Ultrasound: 01/08/2025 1st trimester US IMPRESSION: 1. Single living intrauterine with sonographic gestational age 6 weeks 4 days and sonographic due date 08/30/2025. heart rate lower limits of normal at 113 beats per minute. Follow-up in 2 weeks recommended. 2. There are two sub-chorionic hemorrhages, one located superiorly measuring 1.6 x 0.6 x 0.8 cm and one located inferior to the gestational sac measuring 9 x 6 x 15 mm. 01/22/2025 US follow-up IMPRESSION: 1.Single living intrauterine with sonographic gestational age 8 weeks 4 days and sonographic due date 08/30/2025. 2.Subchorionic hemorrhage on the right measures 1.7 x 1.2 x 0.8 cm. 3. Incidental corpus luteal cyst right ovary. Level II Anatomy US (04/06/2025): Impression: 1. Hand at 18w2d gestational age. 2. The nuchal fold is measured in a suboptimal plane however is thickened at 6.3 mm. 3. No additional anomalies commonly detected by ultrasound were identified in the detailed anatomic survey within the limits of ultrasound. 4. Growth parameters and estimated weight were consistent with gestational age predicted by assigned DEB. 5. The amniotic fluid volume appeared normal. 6. On transabdominal imaging the cervix appeared long and closed. 7. The placenta appears low lying on transabdominal assessment at 1.26 cm from the internal cervical os. Cassandra declined TVUS. Placenta follow-up US (06/07/2025): Placenta radio communications superintendent right at 0.9 cm, longest measurement from cervix is 2.7 cm 08/02/25: cephalic, CARL 23, SDP 9.1, EFW 3733, >97%, AC >97%, BPD 33%, HC 87%, FL 44% COVID: declined Flu: declined Mental Health: 07/06/25 TDAP: Declines RSV: OB - Problem Based A/P Additional Plan (1) History of delivery, antepartum: Status: Acute Plan Proceed with repeat section and bilateral salpingectomy as planned. OB Exam Detailed Labor and Delivery Exam Dilation (cm): 2 Effacement (%): 50 Cervix position: mid Consistency: medium Fetus (Single) Station: -4 Amniotic Membrane Status: intact Heart Rate Baseline: 135 Monitor Accelerations: Present Monitor Decelerations: None [facility] Variability: Moderate (6-25)
[2025-08-19 15:32] LABS: Hemoglobin* 11.5 gm/dL (12.0-16.0)
--- NOTE | 2025-08-19 17:11 | PM.OBPRCCS ---
OB Delivery Proc Additional Procedures Tubal Ligation at the time of : Yes Other: No Procedure Date of procedure: 08/19/25 Pre-op diagnosis: IUP at 38 3/7 weeks Previous section x1, in labor desiring repeat Family planning Post-op diagnosis: same Procedure Done: Global Will [facility] bill your pro fee for this procedure?: Yes Blood Loss Measurement Type: QBL (914mL) Bakri Used: No IV fluids (mL): 1,600 Urine Output (mL): 300 Urine Output Comment: Clear at end of procedure Surgeon: Darian Dickerson MD Feed Preparation Operator: Delicia George MD Anesthesia Type: Spinal Findings: FINDINGS: Live-born female , cephalic presentation, Apgars 8 and 9 at 1 and 5 minutes respectively. weight 10 pounds 8 ounces. Omental adhesion to anterior peritoneum. Grossly normal bilateral ovaries, bilateral fallopian tubes with multiple small vesicles/small cystic structures. Procedure Name: Repeat low transverse section, bilateral salpingectomy Procedure Description: PROCEDURE: After obtaining informed consent, the patient was taken to the operating room where spinal anesthesia was obtained and found to be adequate. She was prepared and draped in the normal sterile fashion in the dorsal supine position with a leftward tilt. A Pfannenstiel skin incision was made with a scalpel along the line of the patient's previous Pfannenstiel scar. This incision was carried down to the underlying layer of fascia with the scalpel and Bovie. The fascia was incised in the midline and the incision extended laterally. The superior aspects of the fascial incision was grasped with Sade clamps, elevated and the underlying rectus muscles dissected off sharply and with electrocautery. The rectus muscles were then in the midline. Thin adhesion of the bladder reflection peritoneum at the lower anterior uterine segment grasped with pickups and utilizing Metzenbaum scissors a bladder flap was developed. Omentum was identified to be attached to the anterior peritoneum and this was clamped, coagulated and cut utilizing small handheld LigaSure device. Hemostasis achieved. This allowed mobilization of the omentum and placement of Romulo retractor. The Romulo O retractor was then placed into the incision. The lower uterine segment was then incised in a transverse fashion with the scalpel. Upon entry into the uterus, large amount of clear amniotic fluid was noted. The uterine incision was extended cephalo caudally with blunt finger fractionation. The infant's head was delivered atraumatically, followed by the remainder of the infant's body. The nose and mouth were suctioned with the bulb suction. The cord was doubly clamped and cut, after 30 seconds of delayed cord clamping and the was handed off the field for evaluation. The placenta was delivered spontaneously with umbilical cord traction and fundal massage. The uterus was cleared of all clots and debris. The uterine incision was reapproximated in a running locking fashion with a 0 Vicryl suture. A 2nd layer of the same suture was used to imbricate in horizontal fashion. Hemostasis secured. The uterus was then exteriorized and the right fallopian tube was grasped with Yan and starting at the fimbrial end the mesosalpinx was sequentially clamped, coagulated and cut utilizing the small handheld LigaSure device. Small oozing noted from resection site that was then treated with electrocautery. Radha was also placed to further secure hemostasis. Hemostasis was secured. Same procedure completed on the left side. Bilateral fallopian tubes sent to pathology. The gutters were inspected and cleared of blood clots. All instruments and retractors were removed. The anterior peritoneum was reapproximated in a running fashion with a 3-0 Vicryl suture. The subfascial tissues were carefully inspected and hemostasis assured. The fascia was reapproximated in a running fashion with a looped 0 Vicryl suture. The subcutaneous tissues were copiously irrigated. Hemostasis was assured. The subcutaneous fat layer was reapproximated with interrupted sutures of 3-0 Vicryl. The skin was closed in a subcuticular fashion with 4-0 Monocryl. LiquiBand and dressing were applied. The patient tolerated the procedure well. Sponge, lap, needle, and instrument counts were reported as correct x2. The patient was taken to the recovery room, awake, and in stable condition. She did receive 2 grams of IV Ancef preoperatively. Complications: None Pathology: specimen obtained, sent to pathology (Placenta and bilateral fallopian tubes ) Surgery Debrief Performed: Yes Condition: stable Disposition: floor
--- NOTE | 2025-08-19 17:30 | W.PM.NB ---
Nerve Block Nerve Block Time Seen by Provider: 17:20 Date Seen: 08/19/25 Type of block requested by surgeon for post-operative analgesia: TAP Side: bilateral Time out performed: Yes Verification of patient name: Yes Verification of date of : Yes Name of person performing procedure: Theo Farmer Continuous monitoring Was continuous monitoring of O2 sat, B/P, monitoring analyst, recorded every 15 minutes?: Yes Procedure Ultrasound guided. Images saved: Yes Medications given in 5ml increments after negative aspiration: Marcaine %: 0.25 mL: 30 Needle gauge: 20 and Exparel mL: 10 Needle gauge: 20 Patient tolerated procedure well: Yes Block Charges Block Charge (with Pro Fee): TAP Bilateral Use of Ultrasound Machine for Block: Yes- US Guidance/pain block
--- NOTE | 2025-08-19 17:31 | P.ANES_ITS ---
Anesthesia Charges Start Date/Time Anesthesia Start Date: 08/19/25 Anesthesia Start Time: 15:50 Stop Date/Time Anesthesia Stop Date: 08/19/25 Anesthesia Stop Time: 17:26 Summary Emergency: CLINICAL RESEARCH TECH Coding CPT Codes CPT Codes: ANESTH CS DELIVERY - 34089 ([id number]) P2 - PATIENT W/MILD SYST DISEASE, QZ - CLINICAL RESEARCH TECH SVC W/O CLINICAL NURSE BY Additional Codes: Summary - Emergency: CLINICAL RESEARCH TECH ([id number])
--- NOTE | 2025-08-19 17:31 | W.ANESCHARGE ---
Anesthesia Charges Start Date/Time Anesthesia Start Date: 08/19/25 Anesthesia Start Time: 15:50 Stop Date/Time Anesthesia Stop Date: 08/19/25 Anesthesia Stop Time: 17:26 Summary Emergency: BINDER CUTTER HAND Coding CPT Codes CPT Codes: ANESTH CS DELIVERY - 54875 ([id number]) P2 - PATIENT W/MILD SYST DISEASE, QZ - BINDER CUTTER HAND SVC W/O SEARCH ENGINE OPTIMIZATION STRATEGIST BY Additional Codes: Summary - Emergency: [employer]ER C[employer] ([id number])
[2025-08-19] MEDS: LACTATED RINGERS 1000 ML 1,000 ML 125 ML IV (20:21)
[2025-08-19] MEDS: ACETAMINOPHEN 500 MG TABLET 1000 MG PO (20:26)
[2025-08-20] VITALS (9 sets, daily range): BP systolic 97–114; BP diastolic 58–73; PULSE 67–82; RESP 16–22; TEMP 36.6–37; O2SAT 98–100
[2025-08-20] MEDS: ACETAMINOPHEN 500 MG TABLET 1000 MG PO ×3 (03:46→18:37)
[2025-08-20 05:48] LABS: Hemoglobin* 9.7 gm/dL (12.0-16.0)
--- NOTE | 2025-08-20 08:07 | PM.OBPNVD1 ---
OB - PN:Subj Subjective Date Seen: 08/20/25 Narrative: Cassandra is a 34 y.o. who was admitted to L & D for a repeat C/S.? She had an uncomplicated repeat .? ? The patient feels well.? The pain is well controlled with current medications.? She has no new complaints.? She is bottle feeding and reports things are going well.? the patient has done well.? Vitals have been stable.? She has remained afebrile.? Has a good appetite, is tolerating a general diet.? She is voiding without difficulty.? She is has not yet passed gas but feels things are starting to move, encouraged to be up and walking today. She has not had a bowel movement.? She is ambulating and denies any dizziness.? Has Small amount of rubra lochia.? OB - PN: Obj Exam Physical Exam: Vital signs: Temp Pulse Resp BP Pulse Ox O2 Del Method 98.5 F 67 20 99/59 L 100 Room Air 08/20/25 03:34 08/20/25 03:34 08/20/25 03:34 08/20/25 03:34 08/20/25 03:34 08/20/25 03:34 Narrative: GENERAL APPEARANCE:? normal affect, alert, no distress MOOD:? appropriate CHEST:? clear to auscultation HEART:? regular rate and rhythm ABDOMEN:?Distended slightly but not firm. soft, non-tender the uterine fundus is firm At Umbilicus, Midline and is appropriate for the stage of recovery. EXTREMITIES:? normal and trace edema Incision: Dressing clean dry intact due to be removed this afternoon OB - PN: Obj Data Labs Labs: Laboratory Results - last 24 hr 08/19/25 08/20/25 15:05 05:31 Hgb 11.5 L 9.7 L Blood Type A Negative Antibody Screen POSITIVE OB - PN: A/P Delivery Assessment and Plan (1) care following delivery: Status: Acute Plan day: 1 Plan: routine care Comments: Assessment/Plan?G 2 P 2 status post uncomplicated repeat .? ?? 1.? Continue route PP cares? 2.? Bottle feeding? 3.? Anticipate discharge home tomorrow ? ?
[2025-08-20] MEDS: DOCUSATE SODIUM 100 MG CAPSULE PO (09:41)
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
[2025-08-21] MEDS: ACETAMINOPHEN 500 MG TABLET 1000 MG PO ×2 (02:03→11:04)
[2025-08-21 07:31] VITALS: BP 122/80; PULSE 74; RESP 18; TEMP 36.6; O2SAT 100
[2025-08-21] MEDS: IBUPROFEN 600 MG TABLET PO (07:55)
[2025-08-21] MEDS: DOCUSATE SODIUM 100 MG CAPSULE PO (07:56)
--- NOTE | 2025-08-21 08:55 | PM.OBDSVD1 ---
DS: Providers Provider Date Seen: 08/21/25 Date of admission: 08/19/25 14:46 Primary care physician: Not a Local Provider Admitting Clinician: Krysten Dickerson MD Consults: 08/19/25 19:51 Consult to House Painter [CONS] Routine Comment: Reason for Consult:: Abuse, Neglect Potential Social Service Consult Attending Physician on discharge: Chelsea Melgar APRN, LIUDMILA DS: Diagnosis Discharge Diagnosis (1) care following delivery: Status: Acute (2) Yeast vaginitis: Status: Acute Exam Narrative: Exam Narrative: GENERAL APPEARANCE:? normal affect, alert, no distress MOOD:? appropriate CHEST:? clear to auscultation HEART:? regular rate and rhythm ABDOMEN:? soft, non-tender the uterine fundus is At Umbilicus, Midline and is appropriate for the stage of recovery. EXTREMITIES:? normal and trace edema INCISION: Healing well, no surrounding erythema, abnormal induration or discharge Const: Vital Signs, click to edit/add: Vital Signs - 24 hr 08/20/25 09:42 08/20/25 12:29 08/20/25 13:16 Temperature 97.8 F 97.9 F Pulse Rate [Right Pulse Oximeter] 72 77 Respiratory Rate 16 16 16 Blood Pressure [Ri ght Arm] 97/66 98/58 L Pulse Oximetry 100 99 Oxygen Delivery Me thod Room Air Room Air 08/20/25 17:07 08/20/25 17:07 08/20/25 23:06 Temperature 98.6 F 98.0 F Pulse Rate [Right Pulse Oximeter] 74 82 Respiratory Rate 18 18 18 Blood Pressure [Ri ght Arm] 108/69 114/73 Pulse Oximetry 98 Oxygen Delivery Me thod Room Air Room Air 08/21/25 07:31 Temperature 97.8 F Pulse Rate [Right Pulse Oximeter] 74 Respiratory Rate 18 Blood Pressure [Ri ght Arm] 122/80 Pulse Oximetry 100 Oxygen Delivery Me thod Room Air OB - DS: Summary Hospital Course Hospital Course: Cassandra is a 34 y.o. G 2 P 2 who was admitted to [facility] for spontaneous onset of labor planning repeat c/s. ?She had a section that was uncomplicated. The patient feels well. ?The pain is well controlled with current medications. ?She has no new complaints. ?She is formula feeding. the patient has done well.? Vitals have been stable.? She has remained afebrile.? Has a good appetite, is tolerating a general diet. ?She is voiding without difficulty.? She is passing gas and has not had a bowel movement.? She is ambulating and denies any dizziness.? Has small amount of rubra lochia. She had a bilateral salpingectomy for prevention. Problems: Anemia Discharge home with baby.? Follow up in 2 weeks and 6 weeks.? Bottle Feeding. Reviewed milk may still come in and how to allow natural process to dry up.? Hgb 9.7. Iron supplement ordered orally every other day?? For pain control of perineum, breast and pelvic pain, take 600 mg Ibuprofen every 6 hours as needed by mouth or 1000 mg acetaminophen (Tylenol) every 6 hours by mouth as needed. You can alternate these so you are taking something every 3 hours as needed. A heating pad can also be used for your abdomen or breasts. You may also take docusate sodium up to twice daily to soften your stools and help to prevent constipation. You may wean off of it when your stools return to normal.? Peripartum Data delivery method: Repeat Section Procedures: Procedures Operation Date: 08/19/25 15:15 Actual Procedure Side Surgeon p Repeat Section, Bilateral Salpingectomy Bilateral Krysten Dcikerson MD Procedures: tubal ligation/salpingectomy (w/ c/s) complications: none [place] Infant Gender: Female Infant Discharge Plan: Home Status at Discharge Overall status at discharge: patient is progressing back to baseline Time Spent with Patient Time attestation: Total time spent providing and/or coordinating discharge services: Time spent: Less than 30 minutes Discharge Plan Discharge Disposition: Home, Self-Care Date of Admission: 08/19/25 14:46 Attending Provider on Discharge: Chelsea Melgar Primary Care Provider: Provider,Not a Local Condition: Stable Anticipated Discharge Date/Time: 08/21/25 12:00 Discharge Medications: New acetaminophen 500 mg Tablet 1,000 mg PO Q6H PRNQty: 0 0RF docusate sodium 100 mg Capsule 100 mg PO DAILY Qty: 90 0RF ferrous sulfate 325 mg (65 mg iron) Tablet 325 mg PO Q48H Qty: 60 0RF ibuprofen 600 mg Tablet 600 mg PO Q6H PRN (Reason: Pain) Qty: 60 0RF oxycodone 5 mg Tablet 5 - 10 mg PO Q4H PRN (Reason: Pain) Qty: 20 0RF Discharge Orders: Discharge Order (Routine); Ordered 08/21/25 Ordered By: Chelsea Melgar Patient Education: OB Over the Counter Medication Information, OB /Bottle Feeding Additional Instructions: Discharge instructions were reviewed with the patient including signs and symptoms of infection and home going medications Lifting Restrictions: 20 pounds for 6 weeks No not submerge incision under water X 2 weeks? Nothing vaginally for 6 weeks: no tampons or intercourse Do not drive while taking narcotic pain medication(s) Off Work or School for 8 weeks 2-week visit: incision check, discuss feeding concerns, review control options and screen for anxiety/depression. 6-week visit for an annual exam. consultation services are available to all mothers and babies for the first year after delivery.? To make an appointment, please call [phone]. Activity Level: Activity as Tolerated Discharge Diet: Regular Follow Up Appointments: [facility] [Provider Group] Forms: Patient Belongings, MyHealth Info Instructions
[2025-08-21] MEDS: FERROUS SULFATE 325 MG TABLET PO (12:47)
== END 2025-08-21 13:35 | disposition home or self-care (01) | DRG 540 ==
PROVIDERS: Admitting Provider Obstetrics & Gynecology; Visit Provider Obstetrics & Gynecology
PROC: 10D00Z1 Extraction of Products of Conception, Low, Open Approach (ICD-10-PCS; CPT 59514; principal; 2025-08-19 15:15)
DX: O98.82 Other maternal infectious and parasitic diseases complicating childbirth (principal); O75.82 Onset (spontaneous) of labor after 37 completed weeks of gestation but before 39 completed weeks gestation, with delivery by (planned) cesarean section; B37.31 Acute candidiasis of vulva and vagina; G89.18 Other acute postprocedural pain; Z30.2 Encounter for sterilization; Z3A.38 38 weeks gestation of pregnancy; Z37.0 Single live birth; O47.1 False labor at or after 37 completed weeks of gestation
CPT/HCPCS: 01961; 36415; 64488; 76942; 85018; 85461; 86592; 86850; 86870; 86900; 86901; 88302; 88307; 99140; A4314; A9270; J0665; J0666; J0690; J1100; J1885; J2274; J2371; J2405; J2590; J2791; J7120